=== PATIENT | male | born 1975 | race Caucasian/White ===

== ENCOUNTER 2018-03-02 05:19 | Day surgery (SDC) | payer OTHER ==
[2018-03-01 11:58] VITALS: BMI 27.4
--- NOTE | 2018-03-02 08:48 | HP ---
Satellite [facility] - Chief Complaint Chief Complaint: R KNEE PAIN History Source: Patient - Past Medical History Allergies/Adverse Reactions: Allergies Allergy/AdvReac Type Severity Reaction Status Date / Time No Known Allergies Allergy Verified 03/01/18 11:53 - Current Medications Current Medications: Home Medications Medication Instructions Recorded NK [No Known Home Medication] 03/01/18 Satellite Physical Exam - Physical Examination Vital Signs: Vital Signs Period Temp Pulse Resp BP Sys/Brothers Pulse Ox Last 24 Hr 98.0 F 71 20 122/77 100 Extremities: Other (+ R KNEE JOINT LINE TENDERNESS) Satellite Impression/Plan - Impression/Plan Impression: INTERNAL DERANGEMENT RIGHT KNEE Operative Procedure: ARTHROSCOPY RIGHT KNEE Date to be Performed: 03/02/18
[2018-03-02] MEDS ORDERED: LIDOCAINE 1%/EPI 1:100000 (20 ML MULTI DOSE VIAL) ONE (09:01)
[2018-03-02] MEDS ORDERED: BUPIVACAINE HCL/PF 0.5% (5MG/ML) 10 ML VIAL ONE (09:01)
[2018-03-02] MEDS ORDERED: PROPOFOL 20 ML ONE ×2 (09:22)
[2018-03-02] MEDS ORDERED: LIDOCAINE HCL/PF 2% SDV 5ML VIAL ONE (09:22)
[2018-03-02] MEDS ORDERED: MIDAZOLAM HCL 2 MG/2 ML SINGLE DOSE VIAL ONE (09:23)
[2018-03-02] MEDS ORDERED: DEXAMETHASONE SOD PHOSPHATE 4 MG/1 ML VIAL ONE (09:53)
[2018-03-02] MEDS ORDERED: BUPIVACAINE HCL/PF 0.5% (5MG/ML) 10 ML VIAL IJ ONE (10:04)
[2018-03-02] MEDS ORDERED: LIDOCAINE 1%/EPI 1:100000 (20 ML MULTI DOSE VIAL) IJ ONE (10:05)
[2018-03-02] MEDS ORDERED: KETOROLAC TROMETHAMINE 30 MG/1 ML VIAL ONE (10:18)
--- NOTE | 2018-03-02 10:25 | OP ---
Operative Note - Note: Operative Date: 03/02/18 Pre-Operative Diagnosis: INTERNAL DERANGEMENT RIGHT KNEE Operation: ARTHROSCVOPY RIGHT KNEE WITH ACL REPAIR WITH THERMAL SHRINKAGE Post-Operative Diagnosis: Same as Pre-op Anesthesia: General Operative Report Dictated: Yes
[2018-03-02] MEDS ORDERED: oxyCODONE HCL 5 MG TABLET PO PRN (10:31)
[2018-03-02] MEDS ORDERED: ACETAMINOPHEN 1000 MG/100 ML VIAL (NON FORMULARY) IVPB PRN (10:31)
[2018-03-02] MEDS ORDERED: ONDANSETRON 4 MG/2 ML VIAL IVPUSH PRN (10:31)
[2018-03-02] MEDS ORDERED: LACTATED RINGERS SOLUTION 1,000 ML IV SCH (10:45)
[2018-03-02] MEDS ORDERED: ACETAMINOPHEN INJECTION 100 ML IVPB ONE (11:08)
[2018-03-02 13:43] VITALS: TEMP 98
[2018-03-02 14:34] VITALS: PULSE 85
[2018-03-02 15:39] VITALS: BP 130/78
--- NOTE | 2018-03-03 08:44 | OP ---
DATE OF OPERATION: 03/02/2018 PREOPERATIVE DIAGNOSIS: Internal derangement, right knee. POSTOPERATIVE DIAGNOSIS: Internal derangement, right knee. PROCEDURE: Right knee arthroscopy and anterior cruciate ligament repair using thermal shrinkage. SURGEON: Neeraj Mckeon MD ANESTHESIA: General with LMA. CLOSURES: 4-0 nylon. COMPLICATIONS: None. CONDITION: To recovery room in stable condition. DESCRIPTION OF PROCEDURE: The patient was taken to the operating room on March 02, 2018. General anesthesia with LMA was administered by the anesthesiologist. The right lower extremity was prepped and draped in the usual sterile fashion. The medial and lateral infrapatellar portal sites were infiltrated with 1% Xylocaine with epinephrine. Both ports were then made with a 15 blade and blunt trocar. The scope was placed in the lateral infrapatellar portal and suprapatellar pouch. The knee was then inflated with a cocktail of 10 mL of 1% Xylocaine, 10 mL of 0.5% Marcaine, and 20 mL of arthroscopic saline. After allowing the anesthetic to sit in the knee for a few minutes, the procedure was performed. The suprapatellar pouch was visualized to be clean. The medial and lateral gutters were visualized to be clean. The undersurface of the patella and trochlea were visualized to be intact. With valgus stress on the knee, the medial compartment was entered. The medial meniscus was visualized and probed and found to be intact. The medial femoral condyle was run and found to be intact as was the medial tibial plateau. In figure-4 position, the lateral compartment was entered. Lateral meniscus was visualized and probed and found to be intact. The lateral and femoral condyles were run and found to be intact as was the lateral tibial plateau. At 90 degrees, the ACL was visualized to have a high-grade partial tear. The posterior fibers were still intact. The anterior fibers were not. The bone near where the insertion of the femur should be in the posterior aspect of the notch was abraded to stimulate some bleeding in this area to allow potential reimplantation. The anterior part of the ACL was buzzed in numerous locations with the ArthroCare device at its lowest setting in order to shrink and tighten up the residual ACL. Post performing this, the ACL had a much more taught morphology and came to a firm implant and had a negative pivot shift. The knee was irrigated with copious amounts of irrigation. Fluid was drained. The ports were closed. Prior to closing the portals, 20 mL of 0.5% Marcaine was infused with a scope trocar for postoperative analgesia. A sterile pressure dressing was placed over the knee. The patient was awakened from anesthesia and transferred to recovery in stable condition with no complications. Estimated blood loss was negligible. Rocio [id number]
== END 2018-03-02 15:35 | disposition home or self-care (01) ==
LOC: JASU-SURG 05:19
PROVIDERS: ATTEND Orthopaedic Surgery
PROC: 0MQN4ZZ Repair Right Knee Bursa and Ligament, Percutaneous Endoscopic Approach (ICD-10-PCS; principal; 2018-03-02 09:30)
DX: S83.511A Sprain of anterior cruciate ligament of right knee, initial encounter (principal); X58.XXXA Exposure to other specified factors, initial encounter; Y93.9 Activity, unspecified; Y92.9 Unspecified place or not applicable
CPT/HCPCS: 94760; 97116-GP; J0131

== ENCOUNTER 2018-06-06 07:29 | Day surgery (SDC) | payer OTHER ==
[2018-06-05 12:42] VITALS: BMI 27.4
[2018-06-06] MEDS ORDERED: LIDOCAINE 1%-EPI 1:100,000 30 ML MDV IJ ONE (08:03)
[2018-06-06] MEDS ORDERED: BUPIVACAINE HCL/PF 0.5% (5MG/ML) 10 ML VIAL ONE (08:03)
[2018-06-06] MEDS ORDERED: DEXAMETHASONE SOD PHOSPHATE 4 MG/1 ML VIAL ONE (08:16)
[2018-06-06] MEDS ORDERED: ceFAZolin SODIUM 1 GM VIAL ONE (08:16)
[2018-06-06] MEDS ORDERED: fentaNYL CITRATE 250 MCG/5 ML VIAL ONE (08:17)
[2018-06-06] MEDS ORDERED: MIDAZOLAM HCL 2 MG/2 ML SINGLE DOSE VIAL ONE (08:17)
[2018-06-06] MEDS ORDERED: PROPOFOL 20 ML ONE (08:17)
[2018-06-06] MEDS ORDERED: LIDOCAINE 1%/EPI 1:100000 (50 ML MULTI DOSE VIAL) NR ONE (08:40)
[2018-06-06] MEDS ORDERED: BUPIVACAINE HCL/PF (5 MG/ML) 30 ML VIAL IJ ONE (08:42)
[2018-06-06] MEDS ORDERED: KETOROLAC TROMETHAMINE 30 MG/1 ML VIAL ONE (08:55)
--- NOTE | 2018-06-06 09:06 | OP ---
Operative Note - Note: Operative Date: 06/06/18 Pre-Operative Diagnosis: internal derangement left knee Operation: arthroscopy left knee and partial MM Post-Operative Diagnosis: Same as Pre-op Surgeon: Neeraj Mckeon Anesthesia: General Operative Report Dictated: Yes
--- NOTE | 2018-06-06 10:30 | OP ---
DATE OF OPERATION: 06/06/2018 PREOPERATIVE DIAGNOSIS: Internal derangement, left knee. POSTOPERATIVE DIAGNOSIS: Internal derangement, left knee. PROCEDURE: Left knee arthroscopy with partial medial meniscectomy. SURGICAL ATTENDING: Neeraj Mckeon MD ANESTHESIA: General with LMA. CLOSURE: 4-0 nylon. COMPLICATIONS: None. CONDITION: To recovery in stable condition. DESCRIPTION OF OPERATIVE PROCEDURE: The patient taken to the operating room on June 06, 2018. General anesthesia with LMA was administered by the anesthesiologist. Left lower extremity was prepped and draped in the usual sterile fashion. The medial and lateral infrapatellar portal sites were infiltrated with 1% xylocaine with epinephrine. Both portals were then made with a 15-blade followed by blunt trocar. The scope trocar was then placed in the inferolateral portal up to the suprapatellar pouch. The knee was inflated with a cocktail of 10 mL of 1% xylocaine, 10 mL of 0.5% Marcaine, and 20 mL of arthroscopic saline. After allowing the anesthetic to work in the knee, the procedure was performed. The pouch was visualized to be clean. The medial and lateral gutters were visualized to be clean. The undersurfaces of the patella and trochlea were visualized to be intact. With valgus stress on the knee, the medial compartment was entered, and medial meniscus was visualized and probed, found to have an anterior flap. This was debrided back to stable meniscal tissue with meniscal biter and arthroscopic shaver. The medial femoral condyle was run and found to be intact as was the medial tibial plateau. At 90 degrees, the ACL was visualized and probed and found to be intact. In the figure-of-4 position, the lateral compartment was entered. The lateral meniscus was visualized, probed, and found to be intact. The lateral femoral condyle was run and found to be intact, as well as the lateral tibial plateau. The knee was irrigated with copious amounts of irrigation. The portal was closed with 4-0 nylon. Prior to closure, 20 mL of 0.5% Marcaine was infused into the knee for postoperative analgesia. Sterile pressure dressing was placed over the knee. The patient awakened from anesthesia and transferred to recovery in stable condition with no complication. ESTIMATED BLOOD LOSS: Negligible. Rocio GASCA/[id number]
[2018-06-06 13:21] VITALS: BP 119/77; PULSE 79; TEMP 97.8
--- NOTE | 2018-06-07 12:42 | PATH ---
Surgical Pathology Report Patient Name: DEBORAH TAYLOR Med. Rec. #: [id number] /Age/Gender: 1975 (Age: 43) / M Account: [id number] Location: [facility] SURGICAL Taken: 06/06/2018 Received: 06/06/2018 Reported: 06/07/2018 Physicians: Neeraj Mckeon M.D. Specimen(s) Received LEFT KNEE SHAVINGS Clinical History Internal derangement left knee Final Diagnosis KNEE SHAVINGS, LEFT, ARTHROSCOPY: FRAGMENTS OF CARTILAGE, DENSE FIBROCONNECTIVE TISSUE, ADIPOSE TISSUE, AND REACTIVE SYNOVIUM. Electronically Signed Beth Carlisle M.D. Gross Description Received in formalin, labeled "left knee shavings," is a 3.0 x 3.0 x 0.4 cm. aggregate of islva-yellow soft tissue fragments. A claims representative portion is submitted in one cassette. 06/06/201806/06/2018
== END 2018-06-06 12:50 | disposition home or self-care (01) ==
LOC: JASU-SURG 07:29
PROVIDERS: ATTEND Orthopaedic Surgery
PROC: 0SBD4ZZ Excision of Left Knee Joint, Percutaneous Endoscopic Approach (ICD-10-PCS; principal; 2018-06-06 08:00)
DX: M23.304 Other meniscus derangements, unspecified medial meniscus, left knee (principal)
CPT/HCPCS: 88304-TC; 94760